=== PATIENT | female | born 1995 | race Caucasian/White ===

== ENCOUNTER → 2016-09-09 | Outpatient (REF) | payer BC ==
[~2016-09-09] MED LIST: IBUP-15 PO; OXYC1TAB87 PO; PREN1TAB79 PO; PROM25TA5 PO
== END ==
LOC: LAB 09:52
PROVIDERS: ATTEND Family Medicine
DX: L02.425 Furuncle of right lower limb (principal)
CPT/HCPCS: 87070; 87147; 87186

== ENCOUNTER → 2016-12-25 | Outpatient (CLI) | payer BC ==
[2016-12-25 11:57] VITALS: BP 132/86
--- NOTE | 2016-12-25 11:57 | Urgent Care T Sheet Ped (E) ---
Information Intake General Temperature (Fahrenheit): 98.3 Pulse: 71 Blood Pressure Systolic: 132 Blood Pressure Diastolic: 86 Respirations: 18 SPO2: 99 History of Present Illness Initial Comments Patient presents with a 2 day history of intermittent chest pain, shakiness, lightheadedness and tachycardia. Symptoms are intermittent and without triggers. Patient states the symptoms are worse in the evening however they were present this morning. No history. Does have a family history of anxiety and depression however no personal history. No new stressors, no new diet or medications. Patient can't think of one single activity that is causing her symptoms. States she took some ibuprofen 2 nights ago when the symptoms started and that seemed to help however she isn't entirely sure if it was the ibuprofen or time that alleviated her symptoms. Sees Dr Grant. States she had her thyroid checked in March and it was normal. 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 Allergies: Coded Allergies: penicillin G (Verified Allergy, Mild, TOLERATES CEPHLASPORINS, 12/21/13) Sulfa (Sulfonamide Antibiotics) (Unverified Allergy, Unknown, 12/21/13) Home Meds Reported Medications Oxycodone HCl/Acetaminophen (Percocet 5mg/325mg)1 Each Tablet1-2 Tab PO Q6H PRN PAIN Ref 0 Pain 12/24/13 Ibuprofen (Motrin IB)200 Mg [id number] Mg PO Q6H PRN PAIN 12/24/13 Vits W-Ca,Fe,Fa(<1MG) ( Vitamins)1 Each Tablet1 Tab PO DAILY 12/24/13 Respiratory Constitutional Symptoms: Weakness Other (shakiness) EENTM: No symptoms reported Respiratory: No Short of breath, No Wheezing Cardiovascular: Chest pain PalpitationsNo Syncope Gastrointestinal/Abdominal: No symptoms reported Genitourinary: No symptoms reported Estimated Date of Delivery: 12-28-13 Neurological: Anxiety Weakness All Other Systems Reviewed Remaining Systems: All other systems reviewed with negative findings Past Rqfqver-Eixasu-Ofeaum Hx Surgeries/Hospitalizations Hospitalization/Surgery Hx: Flu Respiratory History Respiratory: None Cardiovascular Cardiovascular History: None Reproductive System : 1 Abortions: 0 HIV/AIDS: Negative Gastrointestinal GI/Endocrine History: None Diabetes Diabetes: No HEENT Impaired Vision: None Hearing Impaired: None Physicial Exam Pediatric General Appearance: No acute distress, Active Respiratory: Lungs clear Normal breath sounds Cardiovascular Exam: Regular rate, rhythm No murmur Neurologic/Psychiatric Exam: Oriented times 4 CN's II-X nml Mood/affect nml ( answered questions appropriately. made good eye contact.) Departure Urgent Care Impression Impression: Primary Impression: Chest pain Qualified Code: R07.9 - Chest pain, unspecified Departure Disposition: HOME OR SELF-CARE Condition: Stable Referrals: URBANO GRANT MD (PCP) Additional Instructions: Spoke with Dr Grant's office regarding symptoms and workup. The patient did have an appt with their office today however with the patient's symptoms, mom didn't want to wait. We decided to start the workup here at and then have Lia f/u with Dr Grant's office to discuss results and treatment. I sent her to the hospital for CBC, CMP, TSH with free T4 and EKG. I then instructed the patient to present to Dr Grant's office following to set up an appt. I am fairly certain her symptoms are anxiety/depression related (she has a strong family history) however we needed to rule out cardiac and other issues before settling on that diagnosis. Treatment per Dr Grant's office. All questions were answered. Patient and her mom were comfortable to workup and treatment plan. End of report . JIMENEZ TAYLOR Dec 25, 2016 11:01
== END ==
LOC: MHUC 10:17
PROVIDERS: ATTEND Physician Assistant
DX: R07.9 Chest pain, unspecified (principal)
CPT/HCPCS: 99213

== ENCOUNTER → 2016-12-25 | Outpatient (CLI) | payer BC ==
[2016-12-25 11:29] LABS: BASOPHILS % (AUTO) 1 % (0-2); EOSINOPHILS # (AUTO) 0.1 10^3uL; EOSINOPHILS % (AUTO) 2 % (0-4); LYMPHOCYTES # (AUTO) 1.2 X10^3; MEAN CORPUSCULAR HEMOGLOBIN 27.5 PG (26.0-34.0); MEAN CORPUSCULAR HGB CONC 33.2 g/dL (31.0-37.0); MEAN CORPUSCULAR VOLUME 83 FL (80-100); MONOCYTES # (AUTO) 0.5 X10^3; MONOCYTES % (AUTO) 7 % (3-11); NEUTROPHILS # (AUTO) 5.7 X10^3; NEUTROPHILS % (AUTO) 75 % (51-67); PLATELET COUNT 291 10^3uL (150-450); WHITE BLOOD COUNT 7.63 10^3uL (4.0-11.0)
[2016-12-25 12:14] LABS: ALBUMIN 4.8 g/dL (3.4-5.0); ANION GAP 17.1 MEQ/L (3-15); CALCULATED IONIZED CALCIUM 4.2 mg/dL (3.8-4.6); TOTAL PROTEIN 7.8 g/dL (6.4-8.5)
== END ==
LOC: LAB 11:12
PROVIDERS: ATTEND Physician Assistant
DX: R07.89 Other chest pain (principal); F41.1 Generalized anxiety disorder
CPT/HCPCS: 36415; 80053; 84439; 84443; 84703; 85025; 93005